=== PATIENT | female | born 1995 | race Caucasian/White ===

== ENCOUNTER 2017-11-23 08:47 | Emergency (ER) | payer OTHER ==
[~2017-11-23] VITALS: Ht 149.9 cm; Wt 48.1 kg
== END 2017-11-23 11:47 | disposition home or self-care (01) ==
LOC: ER 08:47
DX: S00.83XA Contusion of other part of head, initial encounter (principal); V49.9XXA Car occupant (driver) (passenger) injured in unspecified traffic accident, initial encounter; Y93.89 Activity, other specified; Y92.488 Other paved roadways as the place of occurrence of the external cause; Y99.8 Other external cause status

== ENCOUNTER 2018-04-06 18:41 | Emergency (ER) | payer OTHER ==
[~2018-04-06] VITALS: Ht 149.9 cm; Wt 52.9 kg
[2018-04-06] MEDS ORDERED: OSEL75CA PO (22:56)
== END 2018-04-07 00:24 | disposition home or self-care (01) ==
LOC: ER 18:41
DX: J11.1 Influenza due to unidentified influenza virus with other respiratory manifestations (principal)

== ENCOUNTER → 2021-12-27 | Emergency (ER) | payer OTHER ==
[~2021-12-27] VITALS: Ht 149.9 cm; Wt 49.9 kg
[~2021-12-27] MED LIST: MEDROLPACK PO; METAXALONE800 MG PO; OSEL75CA PO
== END | disposition home or self-care (01) ==
LOC: ER 16:40
DX: S39.92XA Unspecified injury of lower back, initial encounter (principal); W18.30XA Fall on same level, unspecified, initial encounter; Y93.9 Activity, unspecified; Y92.019 Unspecified place in single-family (private) house as the place of occurrence of the external cause; G89.11 Acute pain due to trauma

== ENCOUNTER 2022-01-22 16:31 | Emergency (ER) | payer OTHER ==
[~2022-01-22] VITALS: Ht 149.9 cm; Wt 47.6 kg
== END 2022-01-22 20:52 | disposition home or self-care (01) ==
LOC: ER 16:31
DX: B34.9 Viral infection, unspecified (principal); Z20.822 Contact with and (suspected) exposure to COVID-19

== ENCOUNTER 2022-09-25 17:57 | Emergency (ER) | payer OTHER ==
[~2022-09-25] VITALS: Ht 149.9 cm; Wt 46.7 kg
== END 2022-09-25 20:24 | disposition home or self-care (01) ==
LOC: ER 17:57
DX: K06.2 Gingival and edentulous alveolar ridge lesions associated with trauma (principal); X58.XXXA Exposure to other specified factors, initial encounter; Y93.89 Activity, other specified; Y92.89 Other specified places as the place of occurrence of the external cause; Y99.8 Other external cause status